=== PATIENT | male | born 1995 | race Caucasian/White ===

== ENCOUNTER 2017-10-27 14:33 | Inpatient (IN) | payer BC ==
[~2017-10-27] VITALS: Ht 165.1 cm; Wt 63.5 kg
[2017-10-27 16:37] LABS: microscopic required? NO
[2017-10-27 16:54] LABS: BASOPHIL % 0.4 % (0-2); PLATELET COUNT 223 x10^3mcL (130-400); RED CELL DISTRIBUTION WIDTH 12.7 % (11.5-14.5)
[2017-10-27 17:05] LABS: urine erythrocyte NEGATIVE (NEGATIVE)
[2017-10-27 17:07] LABS: CALCIUM 9.1 mg/dL (8.5-10.1); CARBON DIOXIDE 31.4 mmol/L (21-32); CHLORIDE SERUM 103 mmol/L (98-107); GLUCOSE SERUM 91 mg/dL (74-106); POTASSIUM SERUM 3.8 mmol/L (3.5-5.1); SODIUM SERUM 140 mmol/L (136-145)
[2017-10-27 17:11] LABS: ALBUMIN 4.6 g/dL (3.4-5.0); ALKALINE PHOSPHATASE 78 U/L (46-116); ALT/SGPT 29 U/L (16-63); AST/SGOT 20 U/L (15-37); BILIRUBIN TOTAL 0.5 mg/dL (0.20-1.00); LIPASE 120 IU/L (73-393); TOTAL PROTEIN, SERUM 8.1 g/dL (6.4-8.2)
[2017-10-27 17:16] LABS: HDL CHOLESTEROL 66 mg/dL (40-60)
[2017-10-27 17:20] LABS: T3 TOTAL 1.15 ng/mL
[2017-10-27 17:37] LABS: FREE T4 0.96 ng/dL (0.76-1.46); FREE THYROXINE INDEX 2.3 ug/dL (1.4-4.5); T4(THYROXINE) 6.9 ug/dL (4.7-13.3)
[2017-10-27 18:28] VITALS: BP 115/63
[2017-10-27 18:33] VITALS: Ht 165.1 cm; Wt 63.5 kg
[2017-10-27 18:59] LABS: CHOLESTEROL 155 mg/dL (<200); CHOLESTEROL/HDL RATIO 2.3; TRIGLYCERIDES 46 mg/dL (<150)
[2017-10-27 19:00] LABS: CREATININE SERUM 0.9 mg/dL (0.7-1.3); GFR1 > 60 mL/min
[2017-10-27 19:16] LABS: AMPHETAMINE QUAL UR NONE DETECTED (See below)
[2017-10-27 19:16] LABS: MAGNESIUM 2.1 mg/dL (1.8-2.4); PHOSPHOROUS 3.7 mg/dL (2.5-4.9)
[2017-10-27 19:35] VITALS: BP 110/62
[2017-10-27 21:25] VITALS: BP 107/58
[2017-10-28 05:47] VITALS: BP 107/56
[2017-10-28 06:13] LABS: BASOPHIL % 0.2 % (0-2); PLATELET COUNT 202 x10^3mcL (130-400); RED CELL DISTRIBUTION WIDTH 12.9 % (11.5-14.5)
[2017-10-28 06:31] LABS: CALCIUM 9.1 mg/dL (8.5-10.1); CARBON DIOXIDE 28.6 mmol/L (21-32); CHLORIDE SERUM 105 mmol/L (98-107); GLUCOSE SERUM 88 mg/dL (74-106); POTASSIUM SERUM 4.7 mmol/L (3.5-5.1); SODIUM SERUM 139 mmol/L (136-145)
[2017-10-28 06:50] LABS: CREATININE SERUM 0.8 mg/dL (0.7-1.3); GFR1 > 60 mL/min
[2017-10-28 09:28] VITALS: BP 111/52
[2017-10-28 12:16] VITALS: BP 114/68
[2017-10-28 13:54] VITALS: BP 114/68
[2017-10-28 14:04] LABS: BASOPHIL % 0.4 % (0-2); PLATELET COUNT 209 x10^3mcL (130-400); RED CELL DISTRIBUTION WIDTH 12.9 % (11.5-14.5)
== END 2017-10-28 14:20 | disposition home or self-care (01) | DRG 206 ==
LOC: ED 14:33 → DU 16:29
PROVIDERS: Family Medicine; Specialist
DX: M94.0 Chondrocostal junction syndrome [Tietze] (principal); F32.9 Major depressive disorder, single episode, unspecified; J45.909 Unspecified asthma, uncomplicated; F12.90 Cannabis use, unspecified, uncomplicated; F14.90 Cocaine use, unspecified, uncomplicated; Z53.29 Procedure and treatment not carried out because of patient's decision for other reasons; F41.9 Anxiety disorder, unspecified; Z72.89 Other problems related to lifestyle; Z82.49 Family history of ischemic heart disease and other diseases of the circulatory system; Z87.891 Personal history of nicotine dependence
CPT/HCPCS: 83880; 84439; J7030